=== PATIENT | male | born 1975 | race Two or more races ===

== ENCOUNTER → 2025-03-01 | Outpatient (BNVA) | payer MEDICAID, SELFPAY | END | disposition home or self-care (01) | PROVIDERS: PCP Nurse Practitioner Primary Care; Referring Provider Nurse Practitioner Primary Care; Visit Provider Nurse Practitioner Primary Care | DX: Z00.00 Encounter for general adult medical examination without abnormal findings (principal); B35.9 Dermatophytosis, unspecified; I10 Essential (primary) hypertension | CPT/HCPCS: 99203 ==